=== PATIENT | female | born 1980 | race Caucasian/White ===

== ENCOUNTER → 2018-05-07 14:42 | Outpatient (CLI) | payer MEDICAID, SELFPAY ==
[2018-05-09 17:15] LABS: V-Zoster IgG (Immunity) 1162 index (Immune >165)
== END ==
PROVIDERS: Family Provider Family Medicine; PCP Family Medicine; Visit Provider Family Medicine
DX: Z23 Encounter for immunization (principal)
CPT/HCPCS: 36415; 86787

== ENCOUNTER 2020-11-27 07:35 | Emergency (ER) | payer MEDICAID, SELFPAY ==
[2020-11-27 07:36] VITALS: BP 157/96; PULSE 66; RESP 16; TEMP 36.9; O2SAT 99; BMI 29.8
[2020-11-27 07:41] VITALS: PULSE 61; RESP 12; O2SAT 100
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
[2020-11-27 08:35] VITALS: BP 147/90; PULSE 63; RESP 16; O2SAT 98
[2020-11-27 09:00] VITALS: BP 147/100; PULSE 64; RESP 12; O2SAT 100
[2020-11-27 09:12] VITALS: RESP 16
--- NOTE | 2020-11-27 09:12 | ED.RN ---
REVIEWED D/C INSTRUCTIONS, FOLLOW UP CARE, AND S/S THAT WOULD WARRANT A RETURN TO THE ED WITH PT. PT VERBALIZED AN UNDERSTANDING AND DENIES FURTHER QUESTIONS FOR THIS RN. PT SKIN P/W/D, RESP EVEN AND UNLABORED, PT A&O X 3, NO DISTRESS NOTED. PT AMBULATED OUT OF ED, GAIT STEADY.
== END 2020-11-27 09:13 | disposition home or self-care (01) ==
PROVIDERS: Emergency Provider Emergency Medicine; PCP Family Medicine
DX: S06.0X0A Concussion without loss of consciousness, initial encounter (principal); S80.01XA Contusion of right knee, initial encounter; S60.221A Contusion of right hand, initial encounter; S60.412A Abrasion of right middle finger, initial encounter; Z87.891 Personal history of nicotine dependence; V43.52XA Car driver injured in collision with other type car in traffic accident, initial encounter; Y93.I9 Activity, other involving external motion; Y92.410 Unspecified street and highway as the place of occurrence of the external cause; Y99.8 Other external cause status
CPT/HCPCS: 70450; 72125; 73130; 73564; 99284

== ENCOUNTER 2021-03-21 01:38 | Emergency (ER) | payer MEDICAID, SELFPAY ==
[2021-03-21 01:39] VITALS: BP 159/90; PULSE 61; RESP 15; TEMP 36.3; O2SAT 100; BMI 29.5
--- NOTE | 2021-03-21 01:47 | EX.ED.DYSGE1 ---
HPI History of Present Illness Chief Complaint: Flank Pain Narrative Narrative: Patient presents with left-sided abdominal and flank pain that started earlier today it is sharp and stabbing it waxes and wanes. She has a history of prior kidney stones. She has no dysuria or hematuria. She has no nausea vomiting or diarrhea. She has no right-sided abdominal pain. [facility] Medical History (Updated 03/21/21 @ 05:[address] El Hull MD) Kidney stones Home Medications oxycodone-acetaminophen [Percocet] 1 tab PO Q6H 3 Days #12 tab 03/21/21 [Rx Last Taken Unknown] oxycodone-acetaminophen [Percocet] 1 tab PO Q8H PRN 3 Days #10 tab 03/21/21 [Rx Last Taken Unknown] sulfamethoxazole-trimethoprim [Bactrim DS] 1 tab PO BID #14 tab 03/21/21 [Rx Last Taken Unknown] sulfamethoxazole-trimethoprim [Bactrim DS] 1 tab PO BID #20 tab 03/21/21 [Rx Last Taken Unknown] Allergy/AdvReac Type Severity Reaction Status Date / Time Gadolinium-MRI Contrast Allergy Hives Verified 03/21/21 01:42 Medium [CONTRAST] Social History Smoking Status: Former smoker ROS ROS ED ROS Narrative Past medical history: Reviewed Medications: Reviewed Social history: Noncontributory Review of systems: All systems negative except as indicated General: No fever Eyes: No visual changes ENT: No upper airway congestion, normal voice Neck: No neck pain Cardiovascular: No chest pain Respiratory: No shortness of breath or cough Gastrointestinal: Flank pain as in HPI, as well as left-sided abdominal pain Genitourinary: No dysuria Musculoskeletal: Denies myalgias no difficulty with ambulation Skin: No rash Neurological: No memory loss, confusion or any focal weakness Psych: No recent behavioral changes Hematologic: No easy bleeding or easy bruising EXAM Physical Exam Narrative Exam Narrative: Physical exam General: Patient appears in some distress Head: Normocephalic, Atraumatic Eyes: Conjunctiva not pale ENT: Moist mucous membranes Neck: Supple, Nontender, No lymphadenopathy Cardiovascular: Regular rate, Regular rhythm Respiratory: No distress, CTA bilaterally Abdomen: Soft, there is left lower abdominal pain, no guarding or rebound. Some left-sided CVA pain. Back: Nontender, Normal Inspection. Negative for: CVA tenderness Extremities: Nontender, No edema Skin: Normal color, No rash Neurological: Alert, Normal Strength, Normal Sensation Psychological: Normal affect Const Vital Signs: 03/21/21 01:39 03/21/21 03:21 Temperature 97.4 F L Temperature Source Temporal Pulse Rate 61 61 Respiratory Rate 15 15 Blood Pressure 159/90 H 129/85 H Blood Pressure Mean 113 99 Pulse Ox 100 99 Oxygen Delivery Method Room Air Room Air MDM MDM MDM Narrative Medical decision making narrative: Patient has a small kidney stone, she has a slight infection which was treated in the ED and will be treated at home her pain is controlled I believe she is stable for discharge. Lab Data Labs: Laboratory Results - last 24 hr 03/21/21 03/21/21 03/21/21 02:08 02:08 02:16 WBC 6.2 RBC 4.58 Hgb 12.9 Hct 40.5 MCV 88.4 MCH 28.2 MCHC 31.9 L RDW Std Deviation 39.9 RDW Coeff of [place]ita 12.3 Plt Count 182 MPV 11.0 Immature Gran % (Auto) 0.500 Neut % (Auto) 60.3 Lymph % (Auto) 32.9 [place] % (Auto) 5.5 Eos % (Auto) 0.6 Baso % (Auto) 0.2 Absolute Neuts (auto) 3.7 Absolute Lymphs (auto) 2.04 Nucleated RBC % 0 Sodium 140 Potassium 3.8 Chloride 107 Carbon Dioxide 28.0 Anion Gap 5 BUN 9 Creatinine 1.00 Estim Creat Clear Calc 65.87 Est GFR (MDRD) Af Amer 80 Est GFR (MDRD) Non-Af 66 BUN/Creatinine Ratio 9.0 L Glucose 134 H Calcium 8.8 Total Bilirubin 0.40 AST 15 ALT 14 Alkaline Phosphatase 86 Total Protein 7.2 Albumin 3.5 Globulin 3.7 Albumin/Globulin Ratio 0.9 Urine Color Brown Urine Clarity Cloudy Urine pH 5.0 Ur Specific [place] 1.025 Urine Protein 100 H Urine Glucose (UA) Normal Urine Ketones 5 H Urine Occult Blood 250 H Urine Nitrite Positive H Urine Bilirubin 1 H Urine Urobilinogen 1 H Ur Leukocyte Esterase 100 H Urine RBC > 100 SEEN Urine WBC 0-5 SEEN Ur Squamous Epith Cells 5-10 SEEN Ur Transition Epith Cell 0-5 SEEN Urine Bacteria 3+ Urine Mucus 0 SEEN Urine Test 03/21/21 02:16 WBC RBC Hgb Hct MCV MCH MCHC RDW Std Deviation RDW Coeff of [place] Plt Count MPV Immature Gran % (Auto) Neut % (Auto) Lymph % (Auto) [place] % (Auto) Eos % (Auto) Baso % (Auto) Absolute Neuts (auto) Absolute Lymphs (auto) Nucleated RBC % Sodium Potassium Chloride Carbon Dioxide Anion Gap BUN Creatinine Estim Creat Clear Calc Est GFR (MDRD) Af Amer Est GFR (MDRD) Non-Af BUN/Creatinine Ratio Glucose Calcium Total Bilirubin AST ALT Alkaline Phosphatase Total Protein Albumin Globulin Albumin/Globulin Ratio Urine Color Urine Clarity Urine pH Ur Specific [place] Urine Protein Urine Glucose (UA) Urine Ketones Urine Occult Blood Urine Nitrite Urine Bilirubin Urine Urobilinogen Ur Leukocyte Esterase Urine RBC Urine WBC Ur Squamous Epith Cells Ur Transition Epith Cell Urine Bacteria Urine Mucus Urine Test Negative Discharge Plan Triage Chief Complaint: Flank Pain ED Provider: El Hull Dx/Rx/DC Orders Clinical Impression: Kidney calculi, UTI (urinary tract infection) Instructions: ED CYSTITIS Female Adult, ED Kidney Stone w/ Colic Prescriptions: New oxycodone-acetaminophen [Percocet] 5-325 mg tablet 1 tab PO Q8H PRN (Reason: pain) 3 Days Qty: 10 RF: 0 sulfamethoxazole-trimethoprim [Bactrim DS] 800-160 mg tablet 1 tab PO BID Qty: 14 RF: 0 oxycodone-acetaminophen [Percocet] 5-325 mg tablet 1 tab PO Q6H 3 Days Qty: 12 RF: 0 sulfamethoxazole-trimethoprim [Bactrim DS] 800-160 mg tablet 1 tab PO BID Qty: 20 RF: 0 Primary Care Provider: Madhavi Bal Referrals: Madhavi Bal MD [Primary Care Provider] - Rene Kessler MD [STAFF PHYSICIAN] - 2 Days Disposition Disposition: Home, Self Care
[2021-03-21] MEDS: Ondansetron 4 MG/2 ML Vial IV (01:58)
[2021-03-21] MEDS: Ketorolac 15 MG/ML Vial IV (02:00)
[2021-03-21] MEDS: Morphine 4 MG/ML Syringe IV (02:02)
[2021-03-21] MEDS: 0.9% Normal Saline 1,000 ML 1000 ML IV (02:05)
[2021-03-21 02:16] LABS: Mucous, Urine 0 SEEN /hpf (<or=2+)
[2021-03-21 02:22] LABS: Absolute Lymphocyte Count 2.04 X10^3/uL (0.83-4.51); Absolute Neutrophil Count 3.7 X10^3/uL (2.0-7.7); Basophil# 0.01 X10^3/uL; Basophil% 0.2 % (0-1); Eosinophil# 0.04 X10^3/uL; Eosinophils% 0.6 % (0-5); Hematocrit 40.5 % (37-47); Hemoglobin 12.9 g/dL (12.0-15.0); Lymphocyte # 2.04 X10^3/ul (0.83-4.51); Lymphocyte % 32.9 % (19-41); Mean Corp Hgb Conc 31.9 g/dL (32-36); Mean Corpuscular Hgb 28.2 pg (27.0-32.0); Mean Corpuscular Volume 88.4 fL (81-99); Monocyte# 0.34 X10^3/uL; Monocyte% 5.5 % (0-10); NRBC Flagged by Analyzer 0 % (0-5); Neutrophil # 3.74 X10^3/uL (2.7-7.7); Neutrophil % 60.3 % (47-70); Platelet Count 182 K/mm3 (150-450); RBC Distribution Width CV 12.3 % (11.6-14.6); RBC Distribution Width SD 39.9 fl (35.1-43.9); Red Blood Count 4.58 M/mm3 (4.2-5.4); White Blood Count 6.2 K/mm3 (4.4-11.0)
[2021-03-21 02:29] LABS: Color, Urine Brown (Yellow); Glucose, Dipstick Normal (Normal); Internal QC Validated? YES +Cl - CLEAR BKGD; Ketone-Dipstick 5 mg/dl (Negative); Leukocyte Esterase-Dipstick 100 /ul (Negative); Nitrite-Dipstick Positive (Negative); Occult Blood-Urine 250 /ul (Negative); Pregnancy, Urine Negative Negative; Protein-Dipstick 100 mg/dl (Negative); Specific Gravity, Urine 1.025 (1.002-1.030); Urine Clarity Cloudy (Clear); Urine Urobilinogen 1 mg/dl (Normal)
[2021-03-21 02:30] LABS: Urine Bilirubin Dipstick 1 mg/dL (Negative)
[2021-03-21 02:33] LABS: ALB/GLOB Ratio 0.9 RATIO (0.9-2.4); AST(SGOT) 15 U/L (15-37); Alanine Aminotransfer ALT/SGPT 14 U/L (13-56); Albumin, Serum 3.5 g/dL (3.2-5.0); Alkaline Phosphatase 86 U/L (45-117); Anion Gap 5 (5-15); BUN 9 mg/dL (7-18); Calcium,Total 8.8 mg/dL (8.5-10.1); Chloride 107 mmol/L (98-107); EST Glomerular Filtration Rate 66 mL/min (>60); Est Glom Filt Rate - Afr Amer 80 mL/min (>60); Estimated Creatinine Clearance 65.87 ml/min; Globulin 3.7 g/dL (2.2-4.2); Glucose 134 mg/dL (74-106); Potassium 3.8 mmol/L (3.5-5.1); Protein, Total 7.2 g/dL (6.4-8.2); Sodium Level 140 mmol/L (136-145)
--- NOTE | 2021-03-21 02:40 | CT_ITS ---
STUDY: CT ABDOMEN AND PELVIS WITHOUT CONTRAST REASON FOR EXAM: Female, 40 years old patient with flank pain RADIATION DOSAGE (If Supplied By Facility): CTDIvol = ( 8.18 ) mGy, DLP = ( 447.59 ) mGycm TECHNIQUE: Transaxial images were obtained from the dome of the diaphragm to the symphysis pubis without oral contrast, and without intravenous contrast. Sagittal and coronal images were reconstructed. Individualized dose optimization techniques were used for this CT. COMPARISON: CT of the abdomen and pelvis dated 03/19/2014. FINDINGS: The visualized lung bases are unremarkable. The visualized portions of the heart are within normal limits. Normal liver. Normal gallbladder and extrahepatic biliary system. Normal spleen. Normal pancreas. Normal bilateral adrenal glands. Normal right kidney. There is mild left-sided hydronephrosis and hydroureter secondary to a distal ureteral calculus measuring 4 mm in greatest dimension. There is a nonobstructing left-sided renal calculus measuring up to 3 mm in size. Normal visualized stomach. There is no obvious dilated bowel, ascites or pneumoperitoneum. Small bowel has a grossly normal appearance. The colon is nondistended particularly involving the transverse colon and proximal descending colon. Appears be some fatty infiltration of the meek of the ascending colon with thickening of the wall. This questionable thickening of the meek of the transverse colon and descending colon. The appendix is visualized and appears normal. Normal abdominal aorta. There is venous distention of the inferior vena cava (IVC). Normal retroperitoneum. The urinary bladder is nondistended. Normal visualized uterus. Patient has an IUD. Normal abdominal wall. Normal osseous structures. CT/Abdomen/Pelvis without Cont IMPRESSION: 1. Mild left-sided hydronephrosis and hydroureter secondary to a distal ureteral calculus. 2. Nonspecific thickening of the meek of the colon suggest possible sequela of previous or chronic colitis. Electronically Signed: Spring Valenzuela MD at 5:56 EDT , Service support ,
[2021-03-21 02:43] LABS: Bacteria 3+ /hpf (None Seen); Red Blood Cells-Urine > 100 SEEN /hpf (0-5); Squamous Epithelial Cells - UA 5-10 SEEN /hpf (5-10); Transitional Epithelial - Ur 0-5 SEEN /hpf (0-5); White Blood Cells 0-5 SEEN /hpf (0-5)
[2021-03-21] MEDS: Ceftriaxone 1 GM/50 ML BAG IV (02:49)
[2021-03-21] MEDS: HYDROmorphone 1 MG/ML Syringe IV (03:17)
[2021-03-21 03:21] VITALS: BP 129/85; PULSE 61; RESP 15; O2SAT 99
[2021-03-21 07:08] VITALS: BP 130/82; PULSE 75; RESP 15; O2SAT 98
== END 2021-03-21 07:13 | disposition home or self-care (01) ==
PROVIDERS: Emergency Provider Emergency Medicine; PCP Family Medicine
DX: N20.0 Calculus of kidney (principal); N39.0 Urinary tract infection, site not specified; Z87.442 Personal history of urinary calculi; Z87.891 Personal history of nicotine dependence
CPT/HCPCS: 74176; 80053; 81001; 81025; 85025; 96361; 96365; 96375; 99284; A4216; J2405

== ENCOUNTER 2024-05-16 11:22 | Emergency (ER) | payer MEDICAID, SELFPAY ==
[2024-05-16 11:22] VITALS: BP 143/83; PULSE 68; RESP 14; TEMP 36.6; O2SAT 100; BMI 30.7
--- NOTE | 2024-05-16 12:33 | EKG12_ITS ---
Test Reason : LYONS Blood Pressure : / mmHG Vent. Rate : 061 BPM Atrial Rate : 061 BPM P-R Int : 158 ms QRS Dur : 088 ms QT Int : 406 ms P-R-T Axes : 024 061 042 degrees QTc Int : 408 ms Normal sinus rhythm Normal ECG Confirmed by NATHALIE KRAMER, MARCELINO ([id number]), sports editor KULDIP ARIZMENDI ([id number]) on 05/20/2024 6:54:27 AM Referred By: Confirmed By:AMRCELINO ZELAYA MD
--- NOTE | 2024-05-16 12:33 | RAD_ITS ---
STUDY: X-RAY - LUMBAR SPINE REASON FOR EXAM: Female, 43 years old. Left leg pain for one week. TECHNIQUE: 4 view(s) of the lumbar spine were obtained including oblique views. COMPARISON: None FINDINGS: Normal lumbar lordosis. There is no substantial scoliosis. There is a normal alignment of the vertebrae. Normal vertebral bodies and endplates. Mild degree of disc space narrowing at the L5-S1 level. The soft tissue structures are unremarkable. RAD/L/S Spine Min 4 Views IMPRESSION: Mild degree of disc space narrowing at the L5-S1 level. Electronically Signed: Markell Zhou MD at 13:17 EDT ,
[2024-05-16 13:05] LABS: Anion Gap 1 (5-15); BUN 10 mg/dL (7-18); BUN/Creat Ratio 11.9 RATIO (10-20); Calcium,Total 8.9 mg/dL (8.5-10.1); Chloride 108 mmol/L (98-107); Creatinine, Serum 0.84 mg/dL (0.55-1.02); EST Glomerular Filtration Rate 79 mL/min (>60); Est Glom Filt Rate - Afr Amer 96 mL/min (>60); Estimated Creatinine Clearance 90.91 ml/min; Glucose 99 mg/dL (74-106); Potassium 3.5 mmol/L (3.5-5.1); Sodium Level 140 mmol/L (136-145)
--- NOTE | 2024-05-16 14:23 | EDS_ITS ---
HPI History of Present Illness Chief Complaint: Lower Extremity Injury Narrative Narrative: Patient is a 43-year-old female with no known significant past medical history who presented to the emergency department the chief complaint of left leg pain. Patient states that periodically she will get spasms from her left hip and sometimes her lower back shooting down her left thigh. Patient states that she had been moving some furniture in her house recently but does not recall a specific event that would have caused her symptoms. She denies any other falls or injuries. Patient denies any IV drug use, tobacco use, alcohol use. Denies any sick contacts. [facility] Medical History Kidney stones Home Medications ?Medication ?Instructions ?Recorded ?Last Taken ?Type benzocaine 15 mg-menthol 10 mg 1 roberta mucous membrane .4 times 08/25/23 Unknown Rx lozenges (Chloraseptic Max) daily PRN sore throat #15 ea Allergy/AdvReac Type Severity Reaction Status Date / Time Gadolinium-MRI Contrast Allergy Hives Verified 05/16/24 11:23 Medium (CONTRAST) Social History Smoking Status: Former smoker ROS ROS ED ROS Narrative Constitutional: Denies any fevers, chills, headaches, lightheadedness, dizziness Eyes: Denies double vision blurry vision Cardiovascular: Denies chest pain or palpitations Respiratory: Denies coughing wheezing shortness of breath Abdomen: Denies abdominal pain nausea vomit diarrhea states that she has normal bowel movements : Denies any painful urination, hematuria, polyuria states that she is urinating normally for herself Neurological: Denies any weakness or tingling/numbness Musculoskeletal: Complains of left leg pain as noted above Skin: Denies rashes or lesions EXAM Physical Exam Narrative Exam Narrative: General: Patient was lying in bed rest comfortably did not appear to be in acute distress Head: Atraumatic, normocephalic Eyes: PERRL bilaterally, EOMI bilateral, no conjunctival injection noted Neck: Soft, supple, trachea midline Cardiovascular: Regular rate and rhythm no murmurs gallops rubs noted Respiratory: Clear to auscultation bilaterally no rales rhonchi wheeze noted Abdomen: Soft, nondistended, no tenderness palpation, bowel sounds present x 4 Musculoskeletal: No tenderness palpation the midline of the thoracolumbar spine no CVA tenderness noted on exam patient has full range of motion of all joints without any pain elicited in all bony prominences palpated no pain elicited Extremities: DP pulses +2/4 in the bilateral lower extremities, +5/5 strength noted in the bilateral upper and lower extremities Neurological: Patient following commands knew that she was at [facility] years 2023. Sensation grossly intact in the bilateral lower extremities Skin: Warm, dry, intact Const Vital Signs: 05/16/24 11:22 Temperature 98 F Temperature Source Temporal Pulse Rate 68 Respiratory Rate 14 Blood Pressure 143/83 H Blood Pressure Mean 103 Pulse Ox 100 Oxygen Delivery Method Room Air MDM MDM MDM Narrative Medical decision making narrative: Patient is a 43-year-old female who presented to the emergency department with chief complaint of left lower extremity pain. Patient will have a workup performed here on the differential diagnose includes but not limited to herniated disc, musculoskeletal strain, electrolyte abnormalities. Once workup is obtained and reviewed she will be reevaluated. Patient is EKG reviewed showed sinus rhythm with a rate of 61 bpm. Patient's BMP showed normal sodium 140, potassium normal 3.5, creatinine normal at 0.84. Patient's x-ray of her lumbar spine was reviewed and showed mild degree of disc space narrowing at the L5-S1 levels. Patient was encouraged to follow-up with her primary care physician she was referred to spine surgery. She was encouraged to return with worsening symptoms or other concerns. She is encouraged to use Tylenol and ibuprofen [id number] for pain control. All question concerns answered she would like to go home at this point in time she was discharged home in stable condition Lab Data Labs: Laboratory Results - last 24 hr 05/16/24 12:46 Sodium 140 Potassium 3.5 Chloride 108 H Carbon Dioxide 31.0 Anion Gap 1 L BUN 10 Creatinine 0.84 Estim Creat Clear Calc 90.91 Est GFR (MDRD) Af Amer 96 Est GFR (MDRD) Non-Af 79 BUN/Creatinine Ratio 11.9 Glucose 99 Calcium 8.9 Radiography Diagnostic Testing: Clinical Impression(s) from Imaging Studies Lumbar Spine X-Ray 05/16/24 12:33 IMPRESSION: Mild degree of disc space narrowing at the L5-S1 level. Electronically Signed: Markell Zhou MD at 13:17 EDT , Discharge Plan Triage Chief Complaint: Lower Extremity Injury ED Provider: Peewee Neves Dx/Rx/DC Orders Clinical Impression: Musculoskeletal strain Prescriptions: No Action Chloraseptic Max 15-10 mg lozenge 1 roberta mucous membrane .4 times daily PRN (Reason: sore throat) Qty: 15 0RF Primary Care Provider: Madhavi Bal Referrals: Madhavi Bal MD [Primary Care Provider] - Giancarlo Cheney MD [Med Staff - Active Staff] - Activity Restrictions/Additional Instructions: Follow-up with your doctor in the outpatient setting. Rotate Tylenol and ibuprofen around the clock. Return with worsening symptoms or any concerns. Follow-up with the spine surgeon that you referred to as well. Print Language: Yoruba Disposition Disposition: Home, Self Care
== END 2024-05-16 14:41 | disposition home or self-care (01) ==
PROVIDERS: Emergency Provider Emergency Medicine; PCP Family Medicine; Visit Provider Emergency Medicine
DX: S39.012A Strain of muscle, fascia and tendon of lower back, initial encounter (principal); M51.37 Other intervertebral disc degeneration, lumbosacral region; Z87.891 Personal history of nicotine dependence; X50.0XXA Overexertion from strenuous movement or load, initial encounter
CPT/HCPCS: 72110; 80048; 93005; 99282